=== PATIENT | male | born 1945 | race Caucasian/White ===

== ENCOUNTER 2017-09-21 15:20 | Outpatient (CLI) | payer MEDICARE, OTHER | END 2017-09-21 15:22 | LOC: LAB 15:20 | PROVIDERS: ATTEND Family Medicine | DX: E11.9 Type 2 diabetes mellitus without complications (principal); N40.1 Benign prostatic hyperplasia with lower urinary tract symptoms | CPT/HCPCS: 36415; 83036; 84153 ==

== ENCOUNTER 2017-11-27 08:55 | Outpatient (CLI) | payer MEDICARE, OTHER | END 2017-11-27 08:56 | LOC: OUT 08:55 | PROVIDERS: ATTEND Family Medicine | DX: E11.9 Type 2 diabetes mellitus without complications (principal); E66.9 Obesity, unspecified | CPT/HCPCS: 36415; 83036 ==

== ENCOUNTER 2018-12-31 13:17 | Outpatient (CLI) | payer MEDICARE, OTHER ==
[2018-12-31 13:51] LABS: eGFR (Non-African) > 60
[2018-12-31 13:52] LABS: BASOPHILS % 0.9 (0.0-1.5); MONOCYTES % 5.6 % (0.0-11.0)
[2018-12-31 13:53] LABS: NEUTROPHILS # 4.3 # k/uL (1.4-7.7)
== END 2018-12-31 13:25 ==
LOC: LAB 13:17
PROVIDERS: ATTEND Family Medicine
DX: E78.5 Hyperlipidemia, unspecified (principal); E11.9 Type 2 diabetes mellitus without complications; I10 Essential (primary) hypertension
CPT/HCPCS: 36415; 80053; 80061; 83036; 85025

== ENCOUNTER 2019-04-01 13:42 | Outpatient (CLI) | payer MEDICARE, OTHER ==
--- NOTE | 2019-04-02 13:38 | Diagnostic Imaging Report ---
S[facility] URE[facility]A [facility] [id number] [facility] [address] [address] Report Submission Date: Apr 01, 2019 2:04:29 PM CDT Patient Study Name: JOSHUA MARTIN Date: Apr 01, 2019 1:50:33 PM CDT Modality Type: DX Gender: M Description: CHEST 2VIEW : 41 Institution: [facility] Physician: SINA UREÑA Exam: Chest two views. History: Dizziness. No previous studies are available for comparison. Lung olivier are well aerated without leandro consolidation or effusion. Heart size is normal with atherosclerotic plaques seen in the aorta. Degenerate changes in the thoracic spine are noted. Impression: No leandro consolidation or effusion. Electronically signed on Apr 01, 2019 2:04:29 PM CDT by: Sesar TARIQ
--- NOTE | 2019-04-02 13:39 | Diagnostic Imaging Report ---
S[facility] URE[facility]A [facility] [address] [address] [address] Report Submission Date: Apr 01, 2019 3:09:47 PM CDT Patient Study Name: JOSHUA MARTIN Date: Apr 01, 2019 2:03:30 PM CDT Modality Type: US\SR Gender: F Description: : 41 Institution: [facility] Physician: SINA UREÑA Examination: Carotid artery ultrasound History: Syncope Comparison exams: None available Findings: Right carotid: Common carotid artery peak systolic velocity 72.0 cm/s; end diastolic velocity 16.5 cm/s. Internal carotid artery peak systolic velocity 80.3 cm/s; end diastolic velocity 24.8 cm/s. External carotid artery velocity to 93.7 cm/s. Vertebral artery velocity 30.2 cm/s Vertebral flow antegrade. Normal waveforms. No occlusive plaquing. Left carotid: Common carotid artery peak systolic velocity 77.4 cm/s; end diastolic velocity 15.1 cm/s. Internal carotid artery peak systolic velocity 60.7 cm/s; end diastolic velocity 20.6 cm/s. External carotid artery velocity to 92.5 cm/s. Vertebral artery velocity 48.3 cm/s Vertebral flow antegrade. Normal waveforms. No occlusive plaquing. Right ICA/CCA Ratio: 1.1; Left ICA/CCA Ratio 0.8 Impression: Carotids ratios not elevated. No restriction to hemodynamic flow. Electronically signed on Apr 01, 2019 3:09:47 PM CDT by: Kvng TARIQ
== END 2019-04-01 13:44 ==
LOC: LAB 13:42
PROVIDERS: ATTEND Family Medicine
DX: R55 Syncope and collapse (principal); R06.09 Other forms of dyspnea
CPT/HCPCS: 36415; 71046; 84484; 93880